=== PATIENT | male | born 1955 | race Caucasian/White ===

== ENCOUNTER 2017-05-27 06:44 | Day surgery (SDC) | payer OTHER ==
[2017-05-20 10:44] LABS: HEMOGLOBIN 15.5 g/dL (13.5-17.0); MEAN CORPUSCULAR HEMOGLOBIN 31.4 pg (27.0-33.4); MEAN CORPUSCULAR HGB CONC 35.2 g/dL (32.0-36.0); MEAN CORPUSCULAR VOLUME 89 fl (80-97); PLATELET COUNT 262 10^3/uL (150-450); RED BLOOD COUNT 4.93 10^6/uL (4.35-5.55); RED CELL DISTRIBUTION WIDTH 12.5 % (11.5-14.0); WHITE BLOOD COUNT 7.3 10^3/uL (4.0-10.5)
[2017-05-20 11:06] LABS: ANION GAP 12 (5-19); BLOOD UREA NITROGEN 16 mg/dL (7-20); CARBON DIOXIDE 24 mmol/L (22-30); CHLORIDE 103 mmol/L (98-107); GLUCOSE 211 mg/dL (75-110); POTASSIUM 4.3 mmol/L (3.6-5.0); SODIUM 138.9 mmol/L (137-145)
--- NOTE | 2017-05-21 08:50 | EKG REPORT ---
SEVERITY:- BORDERLINE ECG - SINUS RHYTHM BORDERLINE T ABNORMALITIES, INFERIOR LEADS : Confirmed by: Nash Flowers 21-May-2017 08:49:04
[~2017-05-27 06:44] MED LIST: ACETAMINOPHEN 325 MG TABLET PO PRN; CEFAZOLIN 1 GM/D5W RTU 1 GM/50 ML RTUPB IV PRN; LACTATED RINGERS 1000 ML IV PRN; LIDOCAINE 0.5% INJ-PF (5 MG/ML) 50 ML SDV SUBCUT PRN
[2017-05-27] MEDS ORDERED: BUPIVACAINE HCL 0.25 % INJ/PF (2.5 MG/1 ML) 30 ML VIAL ONE (07:50)
[2017-05-27] MEDS ORDERED: FAMOTIDINE INJ/PF 20 MG/2 ML SDV IV ONE (07:58)
[2017-05-27] MEDS ORDERED: METOCLOPRAMIDE HCL INJ/PF 10 MG/2 ML SDV ONE (08:02)
[2017-05-27] MEDS ORDERED: FENTANYL CITRATE INJ/PF 250 MCG/5 ML AMPULE ONE (08:18)
[2017-05-27] MEDS ORDERED: MIDAZOLAM 2 MG/2 ML INJ ONE (08:18)
[2017-05-27] MEDS ORDERED: EPHEDRINE SULFATE INJ 50 MG/1 ML AMPULE ONE (08:18)
[2017-05-27] MEDS ORDERED: ACETAMINOPHEN 100 ML IV ONE (08:19)
[2017-05-27] MEDS ORDERED: PROPOFOL INJ 200 MG/20 ML VIAL IV ONE (08:19)
[2017-05-27] MEDS ORDERED: HYDROMORPHONE HCL INJ/PF 2 MG/ML AMPULE ONE (08:19)
[2017-05-27] MEDS ORDERED: PROMETHAZINE HCL INJ 25 MG/1 ML VIAL IV PRN ×2 (09:21)
[2017-05-27] MEDS ORDERED: MORPHINE SULFATE 10 MG/ML INJ IV PRN (09:21)
[2017-05-27] MEDS ORDERED: DIPHENHYDRAMINE HCL 50 MG/ML VIAL IV PRN (09:21)
[2017-05-27] MEDS ORDERED: OXYCODONE-ACETAMINOPHEN 5-325 MG TABLET PO PRN ×3 (09:21→09:36)
[2017-05-27] MEDS ORDERED: FENTANYL CITRATE INJ/PF 100 MCG/2 ML AMPUL IV PRN ×3 (09:21)
[2017-05-27] MEDS ORDERED: MEPERIDINE HCL/PF INJ 25 MG/1 ML DISP.SYRIN IV PRN (09:21)
--- NOTE | 2017-05-27 09:36 | Operative Report ---
Operative Report DATE OF SURGERY: 05/27/17 PREOPERATIVE DIAGNOSIS: Umbilical hernia with incarcerated omentum POSTOPERATIVE DIAGNOSIS: Same OPERATION: Laparoscopic primary closure of umbilical hernia with reinforcement using Covidien 9 cm mesh in the intraperitoneal position SURGEON: TATO KIKR [employer] PAYABLE ANALYST: DEANNA CHRISTY ANESTHESIA: GA TISSUE REMOVED OR ALTERED: None COMPLICATIONS: None ESTIMATED BLOOD LOSS: Scant INTRAOPERATIVE FINDINGS: Below PROCEDURE: Patient was taken to the preop holding her to the main operating room where general anesthesia was induced. Abdomen was exposed arms abducted, abdominal wall prepped with Betadine. Surgical plan surgical timeout were conducted. Instrumentation was set up for laparoscopic ventral wall hernia repair, specifically umbilical hernia. Suitable site for port placement was chosen on the abdominal wall the left upper quadrant left lower quadrant and right mid quadrant areas. Was anesthetized with quarter percent Marcaine. Stab was made in the left upper quadrant with 11 blade, Veress needle inserted the peritoneal cavity pneumoperitoneum was established. Veress needle was removed, and a 5 mm port was inserted and a 5 mm viewing scope was inserted. Under direct visualization, 2 additional ports were placed one in the left lower quadrant and one in the right mid field. No evidence of vascular or visceral injury The findings are significant for incarcerated omentum into a solitary umbilical hernia defect which is approximately 2-1/2 cm in diameter. The omentum was reduced uneventfully. We now proceeded to close the umbilical hernia defect transversely with a single 1 PDS suture which was installed in a standard [id number] fashion. This brought the fascial defect closed very satisfactorily. The knot was secured. We now brought onto the field an unexpired 9 cm diameter Covidien PArietex mesh. 0 PDS sutures were placed at the 12, 3, 6, 9:00 positions. The mesh was moistened, rolled, brought to the anterior abdominal wall. It was unrolled, and tacked up to the anterior abdominal wall using the disposable percutaneous suture passer. Knots were secured and the mesh was sitting satisfactorily in the intraperitoneal position against the anterior abdominal wall. Photos were taken. We now deployed approximately 18 absorb attack kyleigh in a circumferential fashion securing the banding mesh to the intra-abdominal wall, intraperitoneal position. Final photos were taken. The viscera were inspected for injury and there was none. Sponge and needle counts are correct. All ports removed under direct visualization, pneumoperitoneum evacuated, wounds closed with 3-0 Vicryl benzoin and Steri- Strips. Patient tolerated procedure well, extubated, taken recovery in stable condition. The physician periodontal assistant, Ms. Tripp, provided assistance during this case by: Assisting and port insertion, retracting tissue, instillation of local anesthesia and closure of skin incisions.
[2017-05-27] MEDS ORDERED: ONDANSETRON HCL INJ/PF 4 MG/2 ML SDV IV PRN (09:37)
--- NOTE | 2017-05-27 09:37 | PDOC DISCHARGE SUMMARY ---
Discharge Summary (SDC) - Discharge Final Diagnosis: Incarcerated umbilical hernia Date of Surgery: 05/27/17 Discharge Date: 05/27/17 Condition: Stable Treatment or Instructions: [facility] [address], [place] [address] Discharge Instructions: Laparoscopic Surgery 1. General Information: a. DO NOT DRIVE a car or operate dangerous machinery for 3-4 days or while taking narcotic pain pills. b. DO NOT consume alcohol, tranquilizers, sleeping medications or any non- prescribed medications for 24 hours unless approved by your doctor or as long as taking narcotic prescription medications. c. DO NOT make important decisions or sign any important papers for the first 24 hours after surgery. d. When discharged home the same day of surgery have a responsible person with you for the first night. 2. Activity Restrictions:8 weeks. a. NO heavy lifting, straining abdominal muscles, bending over a lot, yard work, house work, or sports for [address] for 3-4 days . c. It is fine to go for walks, up and down steps, ride in a car. d. Elevate your head when sleeping/resting. 3. Treatment: a. You may shower 24 hours after surgery, no baths or swimming for 2 weeks. Remove band-aids or dressings before shower but leave paper strips (steri-strips ) on the skin to fall off on their own. If still on at postoperative visit they will be removed then. b. Drainage of fluid or blood is not unusual from an incision. If occurs, you can clean with peroxide and cotton ball daily and cover with dry gauze until the wound seals. c. If a lot of bleeding occurs, you can hold pressure with a gauze or cloth over the site for 10 minutes and it will usually stop. If bleeding continues you will need to call for possible evaluation in office or emergency room. 4. Medications: a. Toradol_ may be taken for pain as needed, one or two tablets every 4-6 hours. Many adults find good pain relief with Advil 600-800 mg three times a day with meals. This can cause indigestion, ulcers, and kidney problems with long-term use. b. You should resume all normal medications unless a change is specified by your doctors. 5. Diet: Normal diet 6. The following may occur after laparoscopic surgery: a. Shoulder or upper back ache from retained gas that should resolve in 1-2 days b. Soreness and bruising at incision sites will resolve with time. c. Scrotal swelling (labia in women) and bruising is often seen after hernia surgery. d. Sore throat e. Fatigue may last days to weeks. f. Difficulty urinating may occur and may need to come into emergency room for urinary catheter placement. 7. Notify Physician If: a. Worsening or pain not improved with pain medication b. Persistent nausea and vomiting c. Fever above 101 d. Persistent bleeding or swelling at operative site e. Unable to urinate and uncomfortable bladder 6-8 hours after surgery 8..Follow Up Care: a. Schedule a follow up appointment with your doctor for 2 weeks. In the event of any postoperative problems or questions or you may call the office during business hours or the On-Call physician evenings and weekends at [facility]. [facility] I understand the instructions for my postoperative care as described above and a copy has been given to me. Patient/Significant Other Witness Date Prescriptions: Ketorolac Tromethamine [Toradol 10 mg Tablet] 10 mg PO Q4HP PRN #25 tablet PRN Reason: Referrals: CINDI ORTIZ MD [Primary Care Provider] - Discharge Activity: No Lifting Over 10 Pounds, No Lifting/Push/Pulling Report the Following to Your Physician Immediately: Nausea, Vomiting, Fever over 101 Degrees, Unusual Bleeding, Swelling, Warmth, Drainage-Foul Smelling
[2017-05-27 13:26] VITALS: BP 142/83
[2017-05-27] MEDS ORDERED: KETOROLAC TROMETHAMINE 60 MG/2 ML SDV ONE (15:55)
[2017-05-27] MEDS ORDERED: ROCURONIUM BROMIDE INJ 50 MG/5 ML VIAL IV ONE (15:55)
[2017-05-27] MEDS ORDERED: ONDANSETRON HCL INJ/PF 4 MG/2 ML SDV ONE (15:55)
[2017-05-27] MEDS ORDERED: DEXAMETHASONE SOD PHOSPHATE INJ 4 MG/1 ML VIAL ONE (15:55)
[2017-05-27] MEDS ORDERED: SUCCINYLCHOLINE CHLORIDE INJ 200 MG/10 ML VIAL ONE (15:55)
[2017-05-27] MEDS ORDERED: NEOSTIGMINE METHYLSULFATE 10 MG/10 ML VIAL ONE (15:55)
[2017-05-27] MEDS ORDERED: GLYCOPYRROLATE INJ 0.4 MG/2 ML VIAL ONE (15:55)
== END 2017-05-27 12:25 | disposition home or self-care (01) ==
LOC: OROUT 06:44
PROVIDERS: ATTEND Surgery
PROC: 0WUF4JZ Supplement Abdominal Wall with Synthetic Substitute, Percutaneous Endoscopic Approach (ICD-10-PCS; principal; 2017-05-27 09:00)
DX: K42.0 Umbilical hernia with obstruction, without gangrene (principal); E11.9 Type 2 diabetes mellitus without complications; E78.00 Pure hypercholesterolemia, unspecified; I10 Essential (primary) hypertension; E55.9 Vitamin D deficiency, unspecified; Z79.899 Other long term (current) drug therapy; Z87.442 Personal history of urinary calculi; Z86.010 Personal history of colon polyps
CPT/HCPCS: 49653; 93005; 36415 ×2; 82947; 84132; 85027; 80048; 93010; C1781; J2250; J0690; J3490; J1100; J1885; J2765; J1170; J0330; J2405; J2704; S0028; J0131; 750; J3010